=== PATIENT | female | born 1960 | race Caucasian/White ===

== ENCOUNTER 2021-08-11 01:49 | Emergency (ER) | payer OTHER ==
[~2021-08-11] VITALS: Ht 167.6 cm; Wt 63.5 kg
[2021-08-11 02:06] VITALS: BP_SYST 120
[2021-08-11] MEDS ORDERED: IBUP-1969 PO (03:44)
[2021-08-11] MEDS ORDERED: HYDR-3917 PO (03:44)
[2021-08-11 04:00] VITALS: BP_SYST 120
== END 2021-08-11 04:00 | disposition home or self-care (01) ==
LOC: SED 01:49
DX: S92.352A Displaced fracture of fifth metatarsal bone, left foot, initial encounter for closed fracture (principal); I10 Essential (primary) hypertension; E11.9 Type 2 diabetes mellitus without complications; Z79.899 Other long term (current) drug therapy; W01.0XXA Fall on same level from slipping, tripping and stumbling without subsequent striking against object, initial encounter; Y93.89 Activity, other specified; Y92.89 Other specified places as the place of occurrence of the external cause; Y99.8 Other external cause status
CPT/HCPCS: 99284